=== PATIENT | female | born 1950 | race Caucasian/White ===

== ENCOUNTER → 2021-05-26 07:29 | Outpatient (CLI) | payer MEDICARE, MEDICAID, SELFPAY ==
--- NOTE | 2021-05-26 | BRBX_PTH ---
PATIENT: GREG WAGGONER LOC: [facility] U#:[id number] AGE/SX: 75/F ROOM: RE05/26/[address]: Dr. Ignacia Ledezma MD : 1950 BED: DIS: SPEC #: [id number] RECD: 05/26/21 09:31 STATUS: GAVINO REDevi #: [id number] MARÍA ELENA: 05/26/21 00:[address]: Ignacia Ledezma DEPT: SURGICAL PATHOLOGY RECD BY: Georges Grant ENTERED: 05/26/21 09:32 SP TYPE: BREAST BX OTHR DR: Dr. Janet Kinney MD Tissues: Right breast, NOS Procedures: Surgery Specimen Level IV HEADER OPERATION: Right breast stereotactic biopsy PRE-OP DIAGNOSIS: Grouped pleomorphic calcification right breast superior lateral quadrant posterior depth TISSUE SUBMITTED: Right breast core tissue ISCHEMIC TIME: 1 minute FIXATION TIME: 11.5 hours MICROSCOPIC DIAGNOSIS Right breast, grouped pleomorphic calcification right breast superior lateral quadrant posterior depth, stereotactic core biopsy: Hyalinized fibroadenoma with focal calcifications. Fibrocystic changes. Negative for atypia or malignancy. See comment. SASKIA:krista 05/27/2021 COMMENT Correlation with clinical, radiologic findings and appropriate follow up are necessary. MICROSCOPIC DESCRIPTION Slides are reviewed. GROSS DESCRIPTION Received in fixative is one container labeled with the patient name and designated right breast. The specimen consists of multiple elongated fragments of hammonds-yellow fibroadipose tissue that in aggregate measure 6 x 3 x 0.3 cm. The entire specimen is submitted in three cassettes. / SASKIA:krista 05/26/21 TC:1 CPT: 10217
--- NOTE | 2021-05-26 13:39 | OP.PCM_ITS ---
Report of Operation Date of Procedure: 05/26/21 Pre-Operative Diagnosis: abnormal calcifications of right breast mammograms Post-Operative Diagnosis: same Surgery/Procedure Performed:: right breast stereotactic biopsy Description of Surgical Findings:: calcifications of right breast noted Surgeon: Ignacia Ledezma Type of Anesthesia: Local Specimen's removed: right breast tissue Estimated Blood Loss (mL): minimal Fluids Replaced: none Description of Procedure: After informed consent was given, the patient was brought into the Breast Biopsy suite. Appropriate time out protocol was followed. The patient was placed in the prone position on the stereotactic biopsy table. The patient?s right breast was then placed in the opening at the head of the biopsy table. A starch mangle tender compression mammogram was then obtained in the medial-lateral view. The suspicious radiological lesion was thus identified. Stereo pictures of the lesion were then taken for XYZ coordinates. The Mammotome biopsy stylus was then positioned where it would be entering into the patient?s breast. The skin at this site was then cleansed with a surgical skin preparation. The skin and subcutaneous tissues at this site were then infiltrated with 1% xylocaine. A small skin incision was made with an 11 blade scalpel. The biopsy stylus was then positioned into the patient?s breast at the proper coordinates of depth. Using the Mammotome vacuum-assist device, several core samples of breast tissue were obtained. A specimen mammogram was the obtained. It revealed that the abnormal calcifications were within the specimen. I reviewed this personally and concluded that the tissue sampling was adequate. A hemostatic marker clip was then placed into the biopsy cavity and a starch mangle tender film revealed that it was properly deployed. The patient was then placed in the supine position and pressure was applied to the breast until no active bleeding was noted. A nylon suture was placed to reapproximate the skin. A unilateral mammogram in the CC and MLO view were then taken which revealed that the marker clip was in the same area as the previous suspicious lesion. The patient tolerated the procedure well and was discharged from the Breast Biopsy suite in good condition. Complications none noted
== END ==
PROVIDERS: PCP Internal Medicine; Referring Provider Surgery; Visit Provider Surgery
DX: D24.1 Benign neoplasm of right breast (principal); N60.11 Diffuse cystic mastopathy of right breast; F17.210 Nicotine dependence, cigarettes, uncomplicated
CPT/HCPCS: 19081; 88305; J7050; A4648

== ENCOUNTER 2023-01-23 16:23 | Emergency (ER) | payer MEDICARE, MEDICAID, SELFPAY ==
[2023-01-23 16:25] VITALS: BP 210/138; PULSE 58; RESP 14; TEMP 35.3; O2SAT 98; BMI 26.0
--- NOTE | 2023-01-23 17:09 | EDS_ITS ---
HPI History of Present Illness Chief Complaint: Laceration Detail of Chief Complaint: Left great toe injury Informant: patient Onset/Context/Timing Onset: Today Narrative Narrative: Patient presents with injury to her left great toe. She was coming down some steps when she slipped and fell. Her left great toenail lifted up and she has some bleeding. There is also some bruising noted to her left second toe. She is unsure of her last tetanus update. [facility] Medical History Hypertension Hypothyroidism Medical History no medical history Allergy/AdvReac Type Severity Reaction Status Date / Time Penicillins [PCN] Allergy Hives Verified 01/23/23 17:21 Social History Smoking Status: Unknown if ever smoked ROS ROS ED Constitutional Constitutional ED: Denies chills or fever(s) Eyes Eyes: Denies change in vision or discharge from eye(s) ENT ENT ED: Denies discharge from eye(s), rhinorrhea or sore throat Cardiovascular Cardiovascular: Denies chest pain or palpitations Respiratory/Chest Respiratory/Chest: Denies cough or dyspnea Gastrointestinal Gastrointestinal: Denies abdominal pain, nausea or vomiting Genitourinary Genitourinary ED: Denies dysuria Musculoskeletal Musculoskeletal: Reports extremity pain; Denies back pain Integumentary Reports Abrasions; Denies rash Neurologic Neurologic: Denies headache(s) or weakness Psychiatric Psychiatric: Denies anxiety or depression Allergic/Immunologic Allergic/Immunologic ED: Denies lip swelling or urticaria EXAM Physical Exam Const Vital Signs: 01/23/23 16:25 Temperature 95.6 F L Temperature Source Temporal Pulse Rate 58 L Respiratory Rate 14 Blood Pressure 210/138 H Blood Pressure Mean 162 Pulse Ox 98 Oxygen Delivery Method Room Air Positive well nourished and well developed General Appearance ED: well developed HEENT Reports normocephalic and head/scalp atraumatic Eyes PERRL and EOMs intact bilaterally Neck supple Chest Wall inspection of chest normal and palpation of chest normal Resp normal respiratory effort and clear to auscultation bilaterally Cardio regular rate and regular rhythm GI normal to inspection, nondistended, normoactive bowel sounds Palpation: soft Extremity Extremity Narrative: Superficial abrasion noted over the left lower peters. No bony tenderness. Mild ecchymosis noted to the left second toe. Toenail from the first toe is lifted up with blood underneath. Good cap refill distally. Neuro oriented x3 and no sensory deficits noted Sensorium / Orientation: alert Psych mental status grossly normal MDM MDM MDM Narrative Medical decision making narrative: Tetanus update provided. Left foot x-ray obtained to rule out fracture. Radiography Diagnostic Testing: Clinical Impression(s) from Imaging Studies Foot X-Ray 01/23/23 17:17 IMPRESSION: Negative left foot x-rays. Electronically Signed: Morris Hernández MD at 17:36 EDT , Treatment and Re-Evaluation Narrative: Left foot x-ray per my interpretation reveals no fracture. Radiology interpretation is reviewed. Digital block of the left great toe was performed with 2 cc 1% lidocaine. Wound is cleansed. The base of the nail midline is still attached. Nail is trimmed and tacked down with Steri-Strips. Bulky dressing will be placed along with a postop shoe. Wound care is discussed. Discharge Plan Triage Chief Complaint: Laceration Other Complaint: Lower Extremity Injury ED Provider: Renee Cain Dx/Rx/DC Orders Clinical Impression: Avulsion of nail Instructions: ED Detached Fingernail or Toenail Primary Care Provider: Janet Kinney Referrals: Janet Kinney MD [Primary Care Provider] - As Needed Disposition Disposition: Home, Self Care
--- NOTE | 2023-01-23 17:17 | RAD_ITS ---
EXAM: XR LEFT FOOT COMPLETE, 3 OR MORE VIEWS CLINICAL INDICATION: injury injured left foot on steps. great toe pain and nail injury. TECHNIQUE: Frontal, lateral and oblique views of the left foot. This report was created using [employer] report Anago technology. COMPARISON: None. FINDINGS: BONES/JOINTS: Unremarkable. No acute fracture. No subluxation. Normal alignment. Preservation of the joint space. No sclerotic or destructive changes observed. SOFT TISSUES: Unremarkable. No soft tissue swelling or gas. No radiopaque foreign body. RAD/Foot min 3 Views IMPRESSION: Negative left foot x-rays. Electronically Signed: Morris Hernández MD at 17:36 EDT ,
[2023-01-23] MEDS: Diphth,Pertuss(Acell),Tet Vac 0.5 ML Vial IM (17:22)
[2023-01-23] MEDS: Lidocaine 1% (20 ml mdv) 20 ML Vial INFILT (17:22)
[2023-01-23 18:48] VITALS: BP 117/63
== END 2023-01-23 18:54 | disposition home or self-care (01) ==
PROVIDERS: Emergency Provider Emergency Medicine; PCP Internal Medicine; Visit Provider Emergency Medicine
DX: S90.212A Contusion of left great toe with damage to nail, initial encounter (principal); Z23 Encounter for immunization; W10.9XXA Fall (on) (from) unspecified stairs and steps, initial encounter
CPT/HCPCS: 11750; 73630; 90471; 90715; 99283